=== PATIENT | male | born 1955 | race Two or more races ===

== ENCOUNTER 2024-01-31 10:39 | Day surgery (SDC) | payer OTHER ==
[2024-01-24 09:46] LABS: URINE APPEARANCE Clear; URINE BILIRRUBIN Negative (NEGATIVE); URINE BLOOD Small; URINE COLOR Dark Yellow; URINE GLUCOSE Negative (NEGATIVE); URINE LEUKOCYTE Small; URINE NITRATE Negative; URINE UROBILINOGEN 0.2 E.U./dl
[2024-01-24 09:50] LABS: URINE BACTERIA 229.3 uL (0.0-1933); URINE EPITHELIAL CELLS 43.5 uL (0.0-38.8); URINE RBC 142.4 uL (0.0-20.8); URINE WBC 45.7 uL (0.0-23.2)
[2024-01-24 09:57] LABS: HEMATOCRIT 48.6 % (39.0-48.0); HEMOGLOBIN 16.4 g/dL (13-16.00); MEAN CELL VOLUME 91.1 fL (80.0-100.00); MEAN CORPUSCULAR HEMOGLOBIN 30.7 pg (27.00-32.0); MEAN CORPUSCULAR HGB CONC 33.7 g/dl (32.0-36.0); PLATELET COUNT 175 K/uL (150-450); RED BLOOD COUNT 5.33 M/uL (4.00-6.00); RED CELL DISTRIBUTION WIDTH 13.4 % (11.5-14.5)
[2024-01-24 10:11] LABS: URINE CRYSTALS FEW /HPF; URINE MUCUS MODERATE; URINE PROTEIN 100 (NEGATIVE)
[2024-01-24 10:28] LABS: BILIRUBIN TOTAL 0.48 mg/dL (0.3-1.2); CALCIUM 9.4 mg/dL (8.5-10.1); CREATININE SERUM 0.72 mg/dL (0.70-1.30); GFR 108.24; GLOBULINA 4.2 G/DL (2.4-3.5); POTASSIUM 3.99 mEq/L (3.5-5.1); TOTAL PROTEIN 8.2 gm/dL (6.4-8.2)
[2024-01-24 10:34] LABS: INR 1.04; PROTHROMBIN TIME 10.9 SECONDS (9.0-11.5)
[2024-01-24 10:35] LABS: PARTIAL THROMBOPLASTIN TIME 38.1 SECONDS (22.0-34.0)
[2024-01-31] MEDS ORDERED: BUPIVACAINE HCL/Mpf 0.5% 10ML VIAL ONE (13:09)
[2024-01-31] MEDS ORDERED: CEFAZOLIN SODIUM 1,000 MG VIAL ONE (13:10)
[2024-01-31] MEDS ORDERED: TYLENOL ARTHRI650 MG PO (13:37)
[2024-01-31] MEDS ORDERED: TRAMADOL HCL50 MG PO (13:37)
[2024-01-31] MEDS ORDERED: MIRALAX17 GM PO (13:37)
[2024-01-31] MEDS ORDERED: ENALAPRILAT DIHYDRATE 1.25 MG/ML VIAL IV ONE (16:58)
[2024-01-31] MEDS ORDERED: hydrALAZINE HCL 20 MG VIAL ONE (18:25)
[2024-01-31] MEDS ORDERED: ONDANSETRON HCL 2 MG/ML VIAL ONE (19:57)
== END 2024-01-31 21:10 | disposition home or self-care (01) ==
LOC: CIR.AMB 10:39
PROVIDERS: ATTEND Surgery
DX: K40.30 Unilateral inguinal hernia, with obstruction, without gangrene, not specified as recurrent (principal); I10 Essential (primary) hypertension; I25.810 Atherosclerosis of coronary artery bypass graft(s) without angina pectoris; E78.5 Hyperlipidemia, unspecified
CPT/HCPCS: 49507; C1781